=== PATIENT | male | born 1950 | race Caucasian/White ===

== ENCOUNTER 2022-06-13 09:51 | Day surgery (SDC) | payer MEDICARE ==
[~2022-06-13] VITALS: Ht 175.3 cm; Wt 62.6 kg
[~2022-06-13 09:51] MED LIST: AMLO5 PO; ASPI325 PO; IRBESARTAN300 M1 PO; MAGNESIUM OXID500 MG PO; Saw Palmetto160 MG PO; TAMS.4ER PO; TERA5 PO; TURMERIC500 M2 PO
== END 2022-06-13 12:22 | disposition home or self-care (01) ==
LOC: ORSCSDS 09:51
PROVIDERS: Student in an Organized Health Care Education/Training Program
PROC: 3E0H8KZ Introduction of Other Diagnostic Substance into Lower GI, Via Natural or Artificial Opening Endoscopic (ICD-10-PCS; principal; 2022-06-13 11:00)
PROC: 0DBM8ZX Excision of Descending Colon, Via Natural or Artificial Opening Endoscopic, Diagnostic (ICD-10-PCS; principal; 2022-06-13 11:00)
PROC: 0DBL8ZX Excision of Transverse Colon, Via Natural or Artificial Opening Endoscopic, Diagnostic (ICD-10-PCS; principal; 2022-06-13 11:00)
DX: Z12.11 Encounter for screening for malignant neoplasm of colon (principal); Z86.010 Personal history of colon polyps; D12.3 Benign neoplasm of transverse colon; K63.3 Ulcer of intestine; K63.5 Polyp of colon; K57.30 Diverticulosis of large intestine without perforation or abscess without bleeding; K64.8 Other hemorrhoids; K62.89 Other specified diseases of anus and rectum; Z87.891 Personal history of nicotine dependence; I10 Essential (primary) hypertension; Z79.899 Other long term (current) drug therapy
CPT/HCPCS: 88305; J2704

== ENCOUNTER 2023-09-30 13:03 | Day surgery (SDC) | payer MEDICARE ==
[~2023-09-30] VITALS: Ht 172.7 cm; Wt 66.0 kg
[2023-09-30] MEDS ORDERED: METO25ER (13:08)
[2023-09-30] MEDS ORDERED: COQ-10100 MG (13:24)
[2023-09-30] MEDS ORDERED: ERGO400 (13:24)
[2023-09-30] MEDS ORDERED: MULVITA (13:24)
[2023-09-30] MEDS ORDERED: GLUCHON (13:24)
[2023-09-30] MEDS ORDERED: C COMPLEX1000 M1 (13:25)
[2023-09-30] MEDS ORDERED: Vitamin B-Comp1 EACH (13:25)
[2023-09-30 14:43] VITALS: BP 152/72
== END 2023-09-30 14:47 | disposition home or self-care (01) ==
LOC: ORSCSDS 13:03
PROVIDERS: Specialist
PROC: 0DJD8ZZ Inspection of Lower Intestinal Tract, Via Natural or Artificial Opening Endoscopic (ICD-10-PCS; principal; 2023-09-30 14:15)
DX: Z12.11 Encounter for screening for malignant neoplasm of colon (principal); K57.30 Diverticulosis of large intestine without perforation or abscess without bleeding; Z86.010 Personal history of colon polyps; I10 Essential (primary) hypertension; N40.0 Benign prostatic hyperplasia without lower urinary tract symptoms; J44.9 Chronic obstructive pulmonary disease, unspecified; Z79.899 Other long term (current) drug therapy
CPT/HCPCS: J2704; J7120

== ENCOUNTER → 2023-11-18 | Outpatient (CLI) | payer MEDICARE ==
[~2023-11-18] MED LIST changes: +C COMPLEX1000 M1; +COQ-10100 MG; +ERGO400; +GLUCHON; +METO25ER; +MULVITA; +Vitamin B-Comp1 EACH
== END ==
LOC: LAB 15:17 → LAB SHORT 15:17
DX: D48.5 Neoplasm of uncertain behavior of skin (principal)
CPT/HCPCS: 88304